=== PATIENT | female | born 2005 | race Caucasian/White ===

== ENCOUNTER 2024-01-01 14:49 | Inpatient (IN) | payer OTHER, SELFPAY ==
[2024-01-01] VITALS (35 sets, daily range): BP systolic 98–151; BP diastolic 47–82; PULSE 98–134; RESP 14–36; TEMP 37–39.6; O2SAT 96–100; BMI 47.7
--- NOTE | ~2024-01-01 | CT_ITS ---
CT abdomen pelvis w con Ordering provider: Sydney Silverman MD History: 18 years Female with . sepsis; groin abscess; hx of DM1 . Comparison: None. Technique: CT abdomen and pelvis with IV and without oral contrast. Automated exposure control and it erative reconstruction technique were employed. The dose-length product was 2016.03 mGy-cm. 100 mL Om nipaque 350 was given IV. Findings: VISUALIZED LOWER CHEST: Normal. UPPER ABDOMINAL ORGANS: Liver: Hepatomegaly. Gallbladder: Normal. Spleen: Normal. Stomach/duodenum: Normal. Pancreas: Normal. Adrenals: Normal. Kidneys: Hypodensity in the right kidney upper pole which may be due to pyelonephritis versus abscess formation follow-up advised. Small hypodensity also seen in the right kidney lower pole. PELVIC ORGANS: The bladder shows thickened wall with underfilling. Evaluation for cystitis advised. U terus is normal possibility of dated or arcuate uterus is not excluded BOWEL AND MESENTERY: Colon: No evidence of diverticulitis. No evidence of appendicitis. Small Bowel: Normal. No obstruction. Peritoneum/mesentery: No free air or free fluid. No mesenteric lymphadenopathy. Multiple small mesent ramiro lymph nodes are noted. RETROPERITONEUM: Normal aorta. No retroperitoneal lymphadenopathy. MUSCULOSKELETAL: Superficial soft tissues: Thickening in the skin is seen in the medial aspect of the upper thigh bila terally. The superficial soft tissues are normal. Bones: Normal spine. IMPRESSION: 1. Hypodensities in the right kidney which may indicate pyelonephritis. Abscess formation cannot be excluded. Follow-up advised. 2. Hepatomegaly. 3. Thickening of the skin in the upper thigh medially. Reviewed, dictated and finalized at location A. IMPRESSION: 1. Hypodensities in the right kidney which may indicate pyelonephritis. Absces s formation cannot be excluded. Follow-up advised. 2. Hepatomegaly. 3. Thickening of the skin in the upper thigh medially.
--- NOTE | ~2024-01-01 | XR_ITS ---
EXAMINATION: XR chest 1V portable 01/01/2024 16:36 INDICATION: Sepsis PROCEDURE: AP portable chest COMPARISON: No prior studies for comparison. FINDINGS: The lungs are clear. The cardiomediastinal silhouette is within normal limits. There are no pleural effusions. There is no pneumothorax suspected. IMPRESSION: 1: NO ACUTE CARDIOPULMONARY DISEASE. Reviewed, dictated and finalized at location B.
[2024-01-01 15:07] LABS: Glucose Point of Care 151 mg/dl (65-105)
--- NOTE | 2024-01-01 15:08 | ED.NAVMDI ---
HPI - Nausea/Vomiting/Diarrhea General Chief complaint: Nausea/Vomiting/Diarrhea <GRETCHEN Bradley Last Filed: 01/01/24 15:11> Stated complaint: Not feeling well <GRETCHEN Bradley Last Filed: 01/01/24 15:11> Time Seen by Provider: 01/01/24 15:00 <GRETCHEN Bradley Last Filed: 01/01/24 15:11> Focused HPI: Patient is a 18 y/o female, with PMH of DM I, who presents to the ED with c/o abscess and elevated BG. Patient reports having an abscess to her right inner thigh for the past 4 days. Hx of similar. Has been draining. Reports blood sugars today have been elevated into the upper 300s. They are concerned for DKA. She has had DKA before. Mother has given multiple corrective doses of insulin with persistent elevated sugars. Patient reports nausea with dry heaving, fevers. GENERAL: Ill-appearing, morbidly obese with BMI of 46.1, and in no acute distress. HEAD: Normocephalic, atraumatic. CHEST: Clear to auscultation. ?No respiratory distress. HEART: Tachycardic with regular rhythm.? NEURO: ?Alert. Somnolent. Patient screened in triage and initial orders placed.? ?Additional care and disposition to be based upon?diagnostic testing and treatment. <GRETCHEN Bradley Last Filed: 01/01/24 15:11> Source: patient and family <GRETCHEN Bradley Last Filed: 01/01/24 15:11> Mode of arrival: ambulatory <GRETCHEN Bradley Last Filed: 01/01/24 15:11> Limitations: no limitations <GRETCHEN Bradley Last Filed: 01/01/24 15:11> History of Present Illness HPI Narrative: 18-year-old female with a history of type 1 diabetes with insulin pump presenting with altered mental status. Most of the history is obtained from her mother who is at bedside. States that the patient has been complaining of an abscess in her right thigh that is going into her groin. States that she has had these before. It has been draining but the patient today with somnolent and confused so her mom brought her in for evaluation. Her insulin pump remains in place but her sugars were still high in the 300 so her mom did give her a few corrective doses. Patient reports nausea and pain in her lower abdomen near the abscess. <Sydney Silverman MD - Last Filed: 01/03/24 18:39> Related Data Home medications: Home Medications Medication Instructions Recorded Confirmed acetaminophen 500 mg tablet 500 mg PO Q6H PRN Fever Or Pain 01/01/24 01/01/24 (Acetaminophen Extra Strength) blood sugar diagnostic (OneTouch 01/01/24 01/01/24 Ultra Test strips) blood-glucose meter ([email or web address] 01/01/24 01/01/24 Ultra2 Meter) blood-glucose sensor (DexDxNA G7 01/01/24 01/01/24 Sensor device) dulaglutide 0.75 mg/0.5 mL 75 mg subcut WEEKLY 01/01/24 01/01/24 subcutaneous pen injector (Arithmatica) mupirocin 2 % topical ointment 1 applic topical TID PRN .Apply to 01/01/24 01/01/24 reddened sites. pen needle, diabetic 32 gauge x 01/01/24 01/01/24 5/32 (TRUEplus Pen Needle) insulin lispro 100 unit/mL See Rx Instructions .Route .COMPLEX 01/02/24 01/02/24 subcutaneous pen <Gloria Figueredo PA-C - Last Filed: 01/01/24 15:11> Allergies/Adverse reactions: Allergies Allergy/AdvReac Type Severity Reaction Status Date / Time Penicillins Allergy Unknown Verified 01/01/24 22:40 <Gloria Figueredo PA-C - Last Filed: 01/01/24 15:11> Review of Systems Review of Systems: All systems reviewed & are unremarkable except as noted in HPI and below <Sydney Silverman MD - Last Filed: 01/03/24 18:39> [facility] Family History Family History: Family History Mother Anxiety Rheumatoid arthritis Sibling Anxiety Diabetes type I Grandparent Acute myocardial infarction Diabetes type I Grandparent Hypertension <Gloria Figueredo PA-C - Last Filed: 01/01/24 15:11> Social History
[2024-01-01 15:28] LABS: Hematocrit 39.2 % (37.0-47.0); Hemoglobin 12.8 g/dL (12.0-15.0); Mean Corpuscular HGB Conc 32.7 g/dl (32-36); Mean Corpuscular Hemoglobin 27.1 pg (26-34); Mean Corpuscular Volume 83.1 fl (80-100); Mean Platelet Volume 9.4 fl (7.4-10.4); Platelet Count Result 427 k/mm3 (150-375); Red Blood Count 4.72 M/mm3 (4.2-5.4); Red Cell Distribution Width 14.1 % (11.5-14.5); White Blood Count 22.4 K/mm3 (4.5-10.0)
[2024-01-01 15:38] LABS: Alanine Aminotransferase 20 U/L (6-35); Albumin Level 4.6 g/dL (3.5-5.1); Alkaline Phosphatase 108 U/L (38-126); Anion Gap 13 mmol/L (4-12); Aspartate Amino Transferase 24 U/L (14-36); Bilirubin,Total 0.8 mg/dL (0.2-1.3); Blood Urea Nitrogen 11 mg/dL (7-17); Calcium 9.3 mg/dL (8.4-10.2); Carbon Dioxide 25 mmol/L (22-30); Chloride 96 mmol/L (98-107); Estimated CRCL calculation 137 ml/min; Estimated Glomerular Filt Rate > 60; Glucose 165 mg/dL (65-110); Potassium 3.6 mmol/L (3.4-5.0); Sodium 134 mmol/L (137-145)
[2024-01-01 15:39] LABS: Magnesium 1.6 mg/dL (1.6-2.3); Phosphorus 2.9 mg/dL (2.5-4.5)
[2024-01-01 15:42] LABS: Hemoglobin A1C 8.1 % (<5.7)
[2024-01-01 15:44] LABS: Beta-Hydroxybutyrate/Acetoacetate 0.39 mmol/L (0.02-0.27)
[2024-01-01 15:56] LABS: Band Neutrophils Percent 3 % (0-6); Basophils Absolute Manual 0.44 K/mm3 (0.0-0.1); Basophils Percent Manual 2 % (0-1); Lymphocytes Absolute Manual 2.01 K/mm3 (1.1-4.5); Monocytes Absolute Manual 1.79 K/mm3 (0.1-0.90); Monocytes Percent Manual 8 % (3-9); Neutrophils Absolute Manual 18.14 K/mm3 (1.7-7.2); Neutrophils Percent Manual 78 % (46-73); Total Cells Counted 100
[2024-01-01 15:57] LABS: Platelet Estimate Increased (Adequate); Schistocytes None Seen
--- NOTE | 2024-01-01 16:22 | ED.NAVMDI ---
HPI - Nausea/Vomiting/Diarrhea General Chief complaint: Nausea/Vomiting/Diarrhea Stated complaint: Not feeling well Time Seen by Provider: 01/01/24 15:00 Source: patient and family Mode of arrival: ambulatory Limitations: no limitations Course Vital Signs Vital signs: Vital Signs Temperature 100.1 F H 01/01/24 14:55 Pulse Rate 134 H 01/01/24 14:55 Respiratory Rate 20 01/01/24 14:55 Blood Pressure 98/47 L 01/01/24 14:55 Pulse Oximetry 98 01/01/24 14:55 Oxygen Delivery Room Air 01/01/24 14:55 Temperature 100.1 F H 01/01/24 14:55 Pulse Rate 134 H 01/01/24 14:55 Respiratory Rate 20 01/01/24 14:55 Blood Pressure 98/47 L 01/01/24 14:55 Pulse Oximetry 98 01/01/24 14:55 Oxygen Delivery Room Air 01/01/24 14:55 MDM - Nausea/Vomiting/Diarrhea Lab Data 01/01/24 15:19 01/01/24 15:19 Labs: Lab Results 01/01/24 01/01/24 01/01/24 Range/Units 15:02 15:18 15:19 WBC 22.4 H (4.5-10.0) K/mm3 RBC 4.72 (4.2-5.4) M/mm3 Hgb 12.8 (12.0-15.0) g/dL Hct 39.2 (37.0-47.0) % MCV 83.1 (80-100) fl MCH 27.1 (26-34) pg MCHC 32.7 (32-36) g/dl RDW 14.1 (11.5-14.5) % Plt Count 427 H (150-375) k/mm3 MPV 9.4 (7.4-10.4) fl Immature Gran % (Auto) Not Reportable Neut % (Auto) Not Reportable Lymph % (Auto) Not Reportable [place] % (Auto) Not Reportable Eos % (Auto) Not Reportable Baso % (Auto) Not Reportable Lymph # (Auto) Not Reportable [place] # (Auto) Not Reportable Eos # (Auto) Not Reportable Baso # (Auto) Not Reportable Abs Immat Gran (auto) Not Reportable Absolute Neuts (auto) Not Reportable Absolute Nucleated RBC Not Reportable Total Counted 100 Neutrophils % (Manual) 78 H (46-73) % Band Neutrophils % 3 (0-6) % Lymphocytes % (Manual) 9.0 L (18-44) % Monocytes % (Manual) 8 (3-9) % Basophils % (Manual) 2 H (0-1) % Nucleated RBC % Not Reportable Abs Neuts (Manual) 18.14 H (1.7-7.2) K/mm3 Abs Lymphs (Manual) 2.01 (1.1-4.5) K/mm3 Abs Monocytes (Manual) 1.79 H (0.1-0.90) K/mm3 Abs Basophils (Manual) 0.44 H (0.0-0.1) K/mm3 Platelet Estimate Increased (Adequate) Schistocytes None seen Sodium 134 L (137-145) mmol/L Potassium 3.6 (3.4-5.0) mmol/L Chloride 96 L (98-107) mmol/L Carbon Dioxide 25 (22-30) mmol/L Anion Gap 13 H (4-12) mmol/L BUN 11 (7-17) mg/dL Creatinine 0.70 (0.7-1.0) mg/dL Estim Creat Clear Calc 137 ml/min Estimated GFR > 60 (59 - ) Glucose 165 H (65-110) mg/dL POC Capillary Glucose 151 H (65-105) mg/dl Hemoglobin A1c 8.1 H (<5.7) % Calcium 9.3 (8.4-10.2) mg/dL Phosphorus 2.9 (2.5-4.5) mg/dL Magnesium 1.6 (1.6-2.3) mg/dL Total Bilirubin 0.8 (0.2-1.3) mg/dL AST 24 (14-36) U/L ALT 20 (6-35) U/L Alkaline Phosphatase 108 (38-126) U/L Total Protein 9.0 H (6.3-8.2) g/dL Albumin 4.6 (3.5-5.1) g/dL Beta-Hydroxybutyrate/Acetoacetate 0.39 H (0.02-0.27) mmol/L Discharge Plan Discharge Follow-up/Referrals: PHYSICIAN NOT ON STAFF,NONSTAFF [Primary Care Provider] -
[2024-01-01 17:12] LABS: Lactic Acid Reflex 1.5 mmol/L (0.7-2.0)
[2024-01-01 17:58] LABS: BEDSIDEPREGUCG Negative
[2024-01-01] MEDS: SODIUM CHLORIDE 0.9% IV 1,000 ML 999 ML IV CONT ×3 (18:08→19:32)
[2024-01-01] MEDS: PIPERACILLIN/TAZ 4.5G/NS 100ML 4.5 GM/100 ML BAG IVPB (18:09)
[2024-01-01] MEDS: ACETAMINOPHEN 500 MG TABLET 1000 MG PO (18:15)
[2024-01-01] MEDS: ONDANSETRON INJ 4 MG/2 ML VIAL IV PUSH (18:15)
[2024-01-01 18:20] LABS: Add Urine Microscopic? YES; Appearance Urine Cloudy (Clear); Bacteria Urine 4+ /hpf; Bilirubin Urine Negative (Negative); Blood Urine Trace (Negative); Color Urine Dark Yellow (Yellow); Glucose Urine UA 1+ mg/dL (Negative); Ketones Urine 2+ mg/dL (Negative); Leukocyte Esterase Ur 2+ LEU/UL (Negative); Need Manual Microscopic Reviewed; Nitrate Urine Positive (Negative); Protein Urine 2+ mg/dL (Negative); Specific Grav Ur 1.025 (1.001-1.035); Squamous Epithelial Cell Urine None Seen /hpf (Few); WBC Urine 51-100 /hpf (0-3)
[2024-01-01] MEDS: VANCOMYCIN 1,250 MG/NS 250 ML 1,250 MG/250 ML BAG 166.67 MG IVPB ×2 (18:54→20:51)
--- NOTE | 2024-01-01 19:23 | PM.IMHP ---
H&P: HPI History of Present Illness Date/Time: 01/01/24 19:23 Chief Complaint: ams Narrative: this is a 18-year-old female with past medical history significant for morbid obesity, insulin-dependent diabetes mellitus. Patient presents to the emergency room due to altered mental status patient had been incoherent, obtunded. In emergency room patient received fluids antibiotics at the time of my visit patient states that has been having pain and burning with urination and flank pain for the last 2 weeks or so with nausea vomiting diarrhea chills night sweats and fevers. Preliminary workup in emergency room was significant for urinalysis with numerous WBCs present. EXAMINATION: XR chest 1V portable 01/01/2024 16:36 INDICATION: Sepsis PROCEDURE: AP portable chest COMPARISON: No prior studies for comparison. FINDINGS: The lungs are clear. The cardiomediastinal silhouette is within normal limits. There are no pleural effusions. There is no pneumothorax suspected. IMPRESSION: 1: NO ACUTE CARDIOPULMONARY DISEASE. CT abdomen pelvis w con Ordering provider: Sydney Silverman MD History: 18 years Female with . sepsis; groin abscess; hx of DM1 . Comparison: None. Technique: CT abdomen and pelvis with IV and without oral contrast. Automated exposure control and iterative reconstruction technique were employed. The dose-length product was 2016.03 mGy-cm. 100 mL Omnipaque 350 was given IV. Findings: VISUALIZED LOWER CHEST: Normal. UPPER ABDOMINAL ORGANS: Liver: Hepatomegaly. Gallbladder: Normal. Spleen: Normal. Stomach/duodenum: Normal. Pancreas: Normal. Adrenals: Normal. Kidneys: Hypodensity in the right kidney upper pole which may be due to pyelonephritis versus abscess formation follow-up advised. Small hypodensity also seen in the right kidney lower pole. PELVIC ORGANS: The bladder shows thickened wall with underfilling. Evaluation for cystitis advised. Uterus is normal possibility of dated or arcuate uterus is not excluded BOWEL AND MESENTERY: Colon: No evidence of diverticulitis. No evidence of appendicitis. Small Bowel: Normal. No obstruction. Peritoneum/mesentery: No free air or free fluid. No mesenteric lymphadenopathy. Multiple small mesenteric lymph nodes are noted. RETROPERITONEUM: Normal aorta. No retroperitoneal lymphadenopathy. MUSCULOSKELETAL: Superficial soft tissues: Thickening in the skin is seen in the medial aspect of the upper thigh bilaterally. The superficial soft tissues are normal. Bones: Normal spine. IMPRESSION: 1. Hypodensities in the right kidney which may indicate pyelonephritis. Abscess formation cannot be excluded. Follow-up advised. 2. Hepatomegaly. 3. Thickening of the skin in the upper thigh medially. Review of Systems Review of Systems: ams, flank pain Constitutional: Constitutional: Reports chills, Reports fatigue, Reports fever(s), Reports malaise, Reports night sweats, Reports poor appetite and Reports weakness Genitourinary: Genitourinary: Reports dysuria and Reports flank pain PMFSH Family History Family History Mother Anxiety Rheumatoid arthritis Sibling Anxiety Diabetes type I Grandparent Acute myocardial infarction Diabetes type I Grandparent Hypertension Social History Social History Smoking status: Never smoker Alcohol intake: never Substance use: never Substance use type: does not use Do You Feel Safe in your Home?: Yes Lack of Transportation: No Lack of Food: Never True Current Housing: I Have Housing Concerned About Future Housing: No Difficulty Paying Gas/Electric Bills: No Difficulty Paying for Meds: No Currently Unemployed: No Education: High School Diploma/GED Difficulty w/ Childcare or Family Care: No Spiritual care concerns: No Meds Home Medications a
[2024-01-01] MEDS: KETOROLAC 15 MG/ML VIAL (*BKC) IV PUSH (19:42)
--- NOTE | 2024-01-01 19:50 | PC.NURSE ---
Patient noted to be febrile during assessment, with skin being hot to the touch. patient fever noted to be 103.3 and tylenol given. and ice packs placed along patients core. patient temperature down to 102 at this time, with ice pack placed on forehead. patient acting more coherant, and is more verbal now that temperature has come down. more medication given, patient on fourth bag of iv fluids for the sepsis fluid bolus.
--- NOTE | 2024-01-01 21:52 | ADMGEN ---
This patient, Marcella Kidd, was admitted to IMU Room 204-01 on 01/01/24 at 2149. Patient/family oriented to hospital policies and general routines including ID bracelet, bed and alarms, visiting hours, pain management, procedures, bathroom and other care routines, personal items, smoking policy, room service/diet, and visiting hours. Information on how to activate the Rapid Response Team has been discussed. Patient/Family are encouraged to report perceived risks to care and to ask questions if they do not understand what they are told or what they should do.
[2024-01-01 22:04] LABS: Glucose Point of Care 156 mg/dl (65-105)
[2024-01-02] VITALS (19 sets, daily range): BP systolic 103–135; BP diastolic 42–61; PULSE 95–114; RESP 14–20; TEMP 36.7–39.5; O2SAT 97–100
--- NOTE | 2024-01-02 02:34 | PC.NURSE ---
01/02/24 at 0220-Pt removed her insulin pump from her left posterior arm per MD orders. Pt powered insulin pump off and insulin pump placed in a biohazard bag and placed in her Pt belongings bag.
[2024-01-02] MEDS: ACETAMINOPHEN 500 MG TABLET PO ×3 (03:43→17:36)
[2024-01-02 03:59] LABS: Glucose Point of Care 192 mg/dl (65-105)
[2024-01-02] MEDS: VANCOMYCIN 1,500 MG/NS 500 ML 1,500 MG/500 ML BAG 250 MG IVPB ×2 (04:46→17:50)
[2024-01-02 04:48] LABS: Estimated CRCL calculation 139 ml/min; Estimated Glomerular Filt Rate > 60
[2024-01-02 06:58] LABS: Glucose Point of Care 289 mg/dl (65-105)
[2024-01-02] MEDS: INSULIN HUMAN REGULAR (*BKC) 100 UNITS/ML 10 UNITS SUB-Q (07:28)
[2024-01-02 07:39] LABS: Glucose Point of Care 314 mg/dl (65-105)
[2024-01-02 08:57] LABS: Glucose Point of Care 370 mg/dl (65-105)
[2024-01-02] MEDS: INSULIN GLARGINE (*BKC) 100 UNITS/ML 60 UNITS SUB-Q (09:24)
[2024-01-02 11:21] LABS: Glucose Point of Care 279 mg/dl (65-105)
--- NOTE | 2024-01-02 14:44 | PC.NURSE ---
Spoke with patients Mother and Father, Mother states she has POA over daughter for medical care. Care coordination in room, Mother states patient is unable to take care of medical decisions due to mental capacity so mother does care. Dr. Troy called into room to talk to family.
[2024-01-02 16:09] LABS: Glucose Point of Care 219 mg/dl (65-105)
[2024-01-02] MEDS: LIDOCAINE 5% PATCH 2 PATCH TRANSDERM (17:23)
[2024-01-02 18:31] LABS: Glucose Point of Care 188 mg/dl (65-105)
[2024-01-02 18:31] LABS: Glucose Point of Care 205 mg/dl (65-105)
--- NOTE | 2024-01-02 18:33 | WPDPN ---
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 Subjective Date/time seen: 01/02/24 18:33 Interval history: ams H&[id number]-[id number]-[id number]: this is a 18-year-old female with past medical history significant for morbid obesity, insulin-dependent diabetes mellitus. Patient presents to the emergency room due to altered mental status patient had been incoherent, obtunded. In emergency room patient received fluids antibiotics at the time of my visit patient states that has been having pain and burning with urination and flank pain for the last 2 weeks or so with nausea vomiting diarrhea chills night sweats and fevers. Preliminary workup in emergency room was significant for urinalysis with numerous WBCs present. 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 Review of Systems Review of Systems: ams, flank pain Constitutional: Constitutional: Reports chills, Reports fatigue, Reports fever(s), Reports malaise, Reports night sweats, Reports poor appetite and Reports weakness Genitourinary: Genitourinary: Reports dysuria and Reports flank pain Exam Narrative: Morbidly obese Patient is comfortable, NAD HEENT: eyes are clear and none icteric LUNGS:CTA HEART: RR S1S2 ABD: BS+, Soft and nontender Lower extremities: no edema SKIN: nonjaundiced Neuro: grossly intact. Objective Data Vital Signs Vital Signs: Vital Signs - 24 hr 01/01/24 19:14 01/01/24 18:40 01/01/24 18:45 Temperature 39.3 C H Pulse Rate 112 H 108 H Respiratory Rate 16 20 Blood Pressure Pulse Oximetry 100 100 Oxygen Delivery 01/01/24 18:46 01/01/24 18:58 01/01/24 19:00 Temperature 39.3 C H Pulse Rate 109 H 108 H 106 H Respiratory Rate 23 H 25 H 25 H Blood Pressure 129/74 137/76 Pulse Oximetry 100 100 Oxygen Delivery 01/01/24 19:01 01/01/24 19:15 01/01/24 19:16 Temperature Pulse Rate 106 H 107 H 99 Respiratory Rate 24 H 26 H 19 Blood Pressure 141/82 H 151/80 H Pulse Oximetry 99 100 100 Oxygen Delivery 01/01/24 19:47 01/01/24 20:00 01/01/24 20:01 Temperature 38.9 C H Pulse Rate 98 107 H 110 H Respiratory Rate 18 26 H 21 H Blood Pressure 134/75 Pulse Oximetry 100 100 100 Oxygen Delivery 01/01/24 20:15 01/01/24 20:16 01/01/24 20:30 Temperature Pulse Rate 109 H 111 H 113 H Respiratory Rate 30 H 29 H 21 H Blood Pressure 140/82 Pulse Oximetry 98 98 100 Oxygen Delivery 01/01/24 20:31 01/01/24 20:45 01/01/24 20:46 Temperature 37.6 C Pulse Rate 111 H 110 H 110 H Respiratory Rate 27 H 20 15 Blood Pressure 132/68 125/62 Pulse Oximetry 100 99 99 Oxygen Delivery 01/01/24 21:03 01/01/24 22:00 01/01/24 21:51 Temperature 37.0 C Pulse Rate 106 H 107 H 107 H Respiratory Rate 18 18 18 Blood Pressure 109/64 Pulse Oximetry 98 97 97
[2024-01-02] MEDS: traMADol HCL (*CRX) 50 MG TABLET PO (19:51)
[2024-01-02 20:54] LABS: Glucose Point of Care 182 mg/dl (65-105)
[2024-01-03] VITALS (11 sets, daily range): BP systolic 108–131; BP diastolic 49–68; PULSE 88–110; RESP 12–24; TEMP 36.7–38.4; O2SAT 97–100
[2024-01-03 00:21] LABS: Glucose Point of Care 180 mg/dl (65-105)
[2024-01-03] MEDS: ACETAMINOPHEN 500 MG TABLET PO ×2 (00:45→16:11)
[2024-01-03 04:15] LABS: Add Urine Microscopic? YES; Appearance Urine Cloudy (Clear); Bacteria Urine None Seen /hpf; Bilirubin Urine Negative (Negative); Blood Urine Negative (Negative); Color Urine Yellow (Yellow); Glucose Urine UA 2+ mg/dL (Negative); Ketones Urine 2+ mg/dL (Negative); Leukocyte Esterase Ur Negative LEU/UL (Negative); Nitrate Urine Negative (Negative); Non Pathogenic Casts 0-2; Protein Urine Trace mg/dL (Negative); RBC Urine 0-2 /hpf (0-2); Specific Grav Ur 1.011 (1.001-1.035); Squamous Epithelial Cell Urine None Seen /hpf (Few); Urobilinogen Urine 0.2 mg/dL (<2.0)
[2024-01-03 04:29] LABS: Glucose Point of Care 123 mg/dl (65-105)
[2024-01-03] MEDS: traMADol HCL (*CRX) 50 MG TABLET PO ×3 (04:39→20:08)
[2024-01-03 05:04] LABS: Anion Gap 10 mmol/L (4-12); Blood Urea Nitrogen 4 mg/dL (7-17); Calcium 8.5 mg/dL (8.4-10.2); Carbon Dioxide 22 mmol/L (22-30); Chloride 105 mmol/L (98-107); Estimated CRCL calculation 189 ml/min; Estimated Glomerular Filt Rate > 60; Glucose 122 mg/dL (65-110); Magnesium 1.8 mg/dL (1.6-2.3); Sodium 137 mmol/L (137-145)
[2024-01-03 05:20] LABS: Vancomycin Trough 6.8 ug/mL (10.0-20.0)
[2024-01-03] MEDS: VANCOMYCIN 2,000 MG/NS 500 ML 2,000 MG/500 ML BAG 250 MG IVPB (05:47)
--- NOTE | 2024-01-03 06:08 | PC.NURSE ---
The patients totals for 24h insulin pulled from patient's pump. Her family didn't fully understand how to fill out the paper.
[2024-01-03 07:41] LABS: Glucose Point of Care 101 mg/dl (65-105)
[2024-01-03 08:04] LABS: Glucose Point of Care 106 mg/dl (65-105)
[2024-01-03] MEDS: ONDANSETRON INJ 4 MG/2 ML VIAL IV PUSH (10:09)
[2024-01-03 11:49] LABS: Glucose Point of Care 139 mg/dl (65-105)
--- NOTE | 2024-01-03 14:09 | PC.NURSE ---
This patient, Marcella Kidd, was transferred to [ 315] on 01/03/24 at 1409. Personal belongings sent with patient. Report given to [Paulette RAMÍREZ ]. Appropriate documentation sent with patient.
--- NOTE | 2024-01-03 14:59 | WPDPN ---
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 Subjective Date/time seen: 01/03/24 14:59 Interval history: ams H&P-WNE-Vouiowpkb: this is a 18-year-old female with past medical history significant for morbid obesity, insulin-dependent diabetes mellitus. Patient presents to the emergency room due to altered mental status patient had been incoherent, obtunded. In emergency room patient received fluids antibiotics at the time of my visit patient states that has been having pain and burning with urination and flank pain for the last 2 weeks or so with nausea vomiting diarrhea chills night sweats and fevers. Preliminary workup in emergency room was significant for urinalysis with numerous WBCs present. 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 Review of Systems Review of Systems: ams, flank pain Exam Narrative: Morbidly obese Patient is comfortable, NAD HEENT: eyes are clear and none icteric LUNGS:CTA HEART: RR S1S2 ABD: BS+, Soft and nontender Lower extremities: no edema SKIN: nonjaundiced Neuro: grossly intact. Objective Data Vital Signs Vital Signs: Vital Signs - 24 hr 01/02/24 16:00 01/02/24 17:21 01/02/24 17:22 Temperature 38.2 C H 39.5 C H 39.5 C H Pulse Rate 107 H Respiratory Rate 20 Blood Pressure 135/57 L Pulse Oximetry 100 Oxygen Delivery 01/02/24 17:36 01/02/24 18:36 01/02/24 20:26 Temperature 39.5 C H 38.8 C H 37.4 C Pulse Rate 103 H Respiratory Rate 20 Blood Pressure 117/53 L Pulse Oximetry 98 Oxygen Delivery 01/02/24 20:00 01/02/24 23:51 01/03/24 00:45 Temperature 37.8 C H 38.4 C H Pulse Rate 98 Respiratory Rate 16 Blood Pressure 130/61 Pulse Oximetry 100 Oxygen Delivery Room Air 01/02/24 20:00 01/03/24 00:00 01/03/24 04:21 Temperature 37.3 C Pulse Rate 101 H 100 93 Respiratory Rate 18 Blood Pressure 110/49 L Pulse Oximetry 98 Oxygen Delivery 01/03/24 04:00 01/02/24 16:00 01/02/24 18:00 Temperature Pulse Rate 110 H 109 H 113 H Respiratory Rate Blood Pressure Pulse Oximetry Oxygen Delivery 01/03/24 08:00 01/03/24 11:49 01/03/24 08:00 Temperature 37.6 C H 36.7 C Pulse Rate 94 95 Respiratory Rate 24 H 12 Blood Pressure 108/52 L 122/64 Pulse Oximetry 97 98 Oxygen Delivery Room Air 01/03/24 08:00 01/03/24 12:00 Temperature Pulse Rate 88 90 Respiratory Rate Blood Pressure Pulse Oximetry Oxygen Delivery Intake/Output Intake/Output: Intake & Output 12/31/23 01/01/24 01/02/24 01/03/24 23:59 23:59 23:59 23:59 Intake Total 4600 2760 2340 Output Total 3650 1700 Balance 4600 -890 640 Meds/Results Medi
[2024-01-03] MEDS: VANCOMYCIN 2,000 MG/NS 500 ML 2,000 MG/500 ML BAG 150 MG IVPB (18:26)
[2024-01-03 23:19] LABS: Glucose Point of Care 126 mg/dl (65-105)
[2024-01-04 05:59] LABS: Glucose Point of Care 101 mg/dl (65-105)
[2024-01-04] MEDS: traMADol HCL (*CRX) 50 MG TABLET PO (06:03)
[2024-01-04] MEDS: VANCOMYCIN 2,000 MG/NS 500 ML 2,000 MG/500 ML BAG 150 MG IVPB (06:03)
[2024-01-04 06:06] VITALS: BP 108/57; PULSE 87; RESP 18; TEMP 36.4; O2SAT 97
[2024-01-04] MEDS: ACETAMINOPHEN 500 MG TABLET PO (08:02)
[2024-01-04 08:15] LABS: Anion Gap 11 mmol/L (4-12); Blood Urea Nitrogen 4 mg/dL (7-17); Calcium 8.6 mg/dL (8.4-10.2); Carbon Dioxide 27 mmol/L (22-30); Chloride 101 mmol/L (98-107); Estimated CRCL calculation 160 ml/min; Estimated Glomerular Filt Rate > 60; Glucose 101 mg/dL (65-110); Magnesium 1.8 mg/dL (1.6-2.3); Potassium 3.3 mmol/L (3.4-5.0); Sodium 139 mmol/L (137-145)
[2024-01-04] MEDS: ONDANSETRON INJ 4 MG/2 ML VIAL IV PUSH (09:10)
[2024-01-04] MEDS: MAGNESIUM OXIDE 400 MG TABLET PO (09:11)
[2024-01-04 10:36] LABS: Hematocrit 33.2 % (37.0-47.0); Hemoglobin 10.4 g/dL (12.0-15.0); Mean Corpuscular HGB Conc 31.3 g/dl (32-36); Mean Corpuscular Hemoglobin 26.9 pg (26-34); Mean Corpuscular Volume 85.8 fl (80-100); Mean Platelet Volume 11.5 fl (7.4-10.4); Platelet Count Result 387 k/mm3 (150-375); Red Blood Count 3.87 M/mm3 (4.2-5.4); Red Cell Distribution Width 14.2 % (11.5-14.5); White Blood Count 12.1 K/mm3 (4.5-10.0)
--- NOTE | 2024-01-04 10:50 | PM.DS ---
DS: Admitting Diagnosis Discharge Date 01/04/2024 Admitting Diagnosis AMS DS: Discharge Diagnosis Discharge Diagnosis (1) Morbid obesity with BMI of 45.0-49.9, adult: Code(s): E66.01 - Morbid (severe) obesity due to excess calories; Z68.42 - Body mass index [BMI] 45.0-49.9, adult Status: Acute (2) Insulin dependent diabetes mellitus: Status: Acute (3) AMS (altered mental status): Code(s): R41.82 - Altered mental status, unspecified Status: Acute (4) Pyelonephritis: Code(s): N12 - Tubulo-interstitial nephritis, not specified as acute or chronic Status: Acute DS: Summary Hospital Course Hospital Course: this is a 18-year-old female with past medical history significant for morbid obesity, insulin-dependent diabetes mellitus. Patient presents to the emergency room due to altered mental status patient had been incoherent, obtunded. In emergency room patient received fluids antibiotics at the time of my visit patient states that has been having pain and burning with urination and flank pain for the last 2 weeks or so with nausea vomiting diarrhea chills night sweats and fevers. Preliminary workup in emergency room was significant for urinalysis with numerous WBCs present. 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 with Type I diabetes, patient has insulin pump, patient and her family are comfortable managing the pump and will follow with sliding scale q6. Discuss with patient mother and she is comfortable taking patient home as patient now her baseline, will discharge patient today. Review of Systems Time Spent with Patient Time attestation: Total time spent providing and/or coordinating discharge services: Exam Narrative: Morbidly obese Patient is comfortable, NAD HEENT: eyes are clear and none icteric LUNGS:CTA HEART: RR S1S2 ABD: BS+, Soft and nontender Lower extremities: no edema SKIN: nonjaundiced Neuro: grossly intact. DS: Data Data Completed and Pending Labs on day of discharge: Labs from last 24 hours 01/04/24 01/04/24 01/03/24 06:50 05:53 23:14 WBC Pending RBC Pending Hgb Pending Hct Pending MCV Pending MCH Pending MCHC Pending RDW Pending Plt Count Pending MPV Pending Sodium 139 Potassium 3.3 L Chloride 101 Carbon Dioxide 27 Anion Gap 11 BUN 4 L Creatinine 0.60 L Estim Creat Clear Calc 160 Estimated GFR > 60 Glucose 101 POC Capillary Glucose 101 126 H Calcium 8.6 Magnesium 1.8 01/03/24 11:42 WBC RBC Hgb Hct MCV MCH MCHC RDW Plt Count MPV Sodium Potassium Chloride Carbon Dioxide Anion Gap BUN Creatinine Estim Creat Clear Calc Estimated GFR Glucose POC Capillary Glucose 139 H Calcium Magnesium Preliminary micro results at discharge 01/01/24 16:38 Blood Culture - Preliminary Blood 01/01/24 16:26 Blood Culture - Preliminary Blood Discharge Plan Discharge Attending physician on discharge: Juan Simms V. Consulting providers: Miguel Damon; Judson Min; Gloria Figueredo Discharging Clinician: Tuan Troy Patient Disposition: Home, Self-Care Activity: as tolerated Diet: heart healthy Discharge Instructions: patient to follow up with her primary care provider as soon as possible, if any symptoms worsen to go nearest ER. Patient Instructions: Antibiotic Form, Urinary Tract Infection in Women (GEN), Sepsis (GEN) Stand Alone Forms: General Discharge Information Follow-up/Referrals: UNKNOWN,DOCTOR [Primary Care Provider] - Discharge Medications: New tramadol 50 mg Tablet 50 mg PO Q8H PRN (Reason: Pain Rated 4-6) Qty: 21 0RF magnesi
== END 2024-01-04 12:09 | disposition home or self-care (01) | DRG 463 ==
LOC: ANHED 16:41 → ANHIMU 20:54 → ANH3MEDSUR 01-03 13:11
PROVIDERS: Physician Assistant; Admitting Provider Internal Medicine; Emergency Provider Emergency Medicine; Visit Provider Family Medicine
DX: N12 Tubulo-interstitial nephritis, not specified as acute or chronic (principal); B96.20 Unspecified Escherichia coli [E. coli] as the cause of diseases classified elsewhere; E66.01 Morbid (severe) obesity due to excess calories; Z68.42 Body mass index [BMI] 45.0-49.9, adult; E10.9 Type 1 diabetes mellitus without complications
CPT/HCPCS: 36415; 71045; 74177; 80048; 80053; 80202; 81001; 81025; 82010; 82565; 82948; 83036; 83605; 83735; 84100; 85025; 85027; 87040; 87077; 87086; 87088; 87186; 96361; 96365; 96375; 99285; A9270; J1815; J1885; J2405; J2543; J3370; J7030; Q9967